=== PATIENT | female | born 1985 | race Caucasian/White ===

== ENCOUNTER → 2022-11-25 08:57 | Outpatient (CLI) | payer MEDICAID, SELFPAY ==
[2022-11-25 09:36] LABS: Basophils % 0.5 % (0.1-2.0); Eosinophils # 0.2 K/mm3 (0.0-0.4); Eosinophils % 2.8 % (0.1-12.0); Hematocrit 40.4 % (37.0-47.0); Hemoglobin 12.9 g/dL (12.2-16.2); Lymphocytes # 2.5 K/mm3 (0.7-4.5); Mean Corpuscular Hemoglobin 31.6 pg (27.0-31.2); Mean Corpuscular Volume 98.9 fl (81-99); Mean Platelet Volume 7.8 fl (7.4-10.4); Monocytes # 0.6 K/mm3 (0.1-1.0); Monocytes % 6.9 % (1.7-9.3); Neutrophils % 59.8 % (37.0-80.0); Platelet Count 386 K/mm3 (142-424); Red Blood Count 4.08 M/mm3 (4.20-5.40); Red Cell Distribution Width 13.5 % (11.5-17.5); White Blood Count 8.4 K/mm3 (4.8-10.8)
[2022-11-25 09:49] LABS: Alanine Aminotransferase 17 U/L (12-78); Albumin Level 4.2 g/dl (3.5-5.0); Anion Gap 10.2 mEq/L (5-15); Aspartate Amino Transferase 27 U/L (14-36); Bilirubin,Total 0.3 mg/dl (0.2-1.3); Blood Urea Nitrogen 10 mg/dl (7-17); Calcium 9.3 mg/dl (8.4-10.2); Carbon Dioxide 28 mmol/L (22.0-30.0); Chloride 105 mmol/L (98-107); Estimated Glomerular Filt Rate 95 ml/min (>60); GFR (African American) 115 ML/MIN (>60); Glucose 91 mg/dl (74-100); Potassium 4.2 mmoL/L (3.5-5.1); Sodium 139 mmol/L (136-145); Total Protein,Serum 7.1 g/dl (6.3-8.2)
[2022-11-25 09:50] LABS: Albumin/Globulin Ratio 1.4 (1.1-1.8); Alkaline Phosphatase 66 U/L (38-126); Globulin 2.9 g/dL (1.3-3.2)
[2022-11-25 10:08] LABS: HCG,Quantitative < 2 mIU/ml (0-5.42)
== END ==
PROVIDERS: PCP Family Medicine; Visit Provider Obstetrics & Gynecology
DX: N90.89 Other specified noninflammatory disorders of vulva and perineum (principal)
CPT/HCPCS: 36415; 80053; 84702; 85025

== ENCOUNTER 2022-11-28 06:10 | Day surgery (SDC) | payer MEDICAID, SELFPAY ==
[2022-11-25 09:23] VITALS: BMI 23.0
--- NOTE | 2022-11-28 07:13 | SUR.PREOP ---
pt stated her place busted open last night and is no longer there. I contacted Dr Merrill she instructed if the pt wanted to see her she would come on in and talk with her. Otherwise, she can go on home and to contact the office if concerns arise. Pt stated she was fine to go on home and would notify if any problems
== END 2022-11-28 06:20 | disposition home or self-care (01) ==
PROVIDERS: PCP Nurse Practitioner Family; Visit Provider Obstetrics & Gynecology
PROC: (CPT 11420; principal; 2022-11-28 07:30)
DX: Z53.29 Procedure and treatment not carried out because of patient's decision for other reasons (principal); N90.89 Other specified noninflammatory disorders of vulva and perineum
CPT/HCPCS: 11420

== ENCOUNTER → 2023-01-19 14:14 | Outpatient (CLI) | payer MEDICAID, SELFPAY ==
[2023-01-19 14:45] LABS: Basophils # 0.1 K/mm3 (0-0.2); Basophils % 0.6 % (0.1-2.0); Eosinophils # 0.4 K/mm3 (0.0-0.4); Eosinophils % 3.5 % (0.1-12.0); Hematocrit 38.7 % (37.0-47.0); Hemoglobin 13.3 g/dL (12.2-16.2); Lymphocytes # 3.4 K/mm3 (0.7-4.5); Lymphocytes % 32.2 % (10-50); Mean Corpuscular HGB Conc 34.3 g/dL (31.8-35.4); Mean Corpuscular Hemoglobin 33.6 pg (27.0-31.2); Mean Corpuscular Volume 98.1 fl (81-99); Mean Platelet Volume 8.5 fl (7.4-10.4); Monocytes # 0.6 K/mm3 (0.1-1.0); Monocytes % 5.5 % (1.7-9.3); Neutrophils # 6.2 K/mm3 (1.8-7.8); Neutrophils % 58.2 % (37.0-80.0); Platelet Count 363 K/mm3 (142-424); Red Blood Count 3.95 M/mm3 (4.20-5.40); Red Cell Distribution Width 13.2 % (11.5-17.5); White Blood Count 10.6 K/mm3 (4.8-10.8)
[2023-01-19 16:37] LABS: Alanine Aminotransferase 19 U/L (12-78); Albumin Level 4.1 g/dl (3.5-5.0); Albumin/Globulin Ratio 1.5 (1.1-1.8); Alkaline Phosphatase 69 U/L (38-126); Anion Gap 15.6 mEq/L (5-15); Aspartate Amino Transferase 33 U/L (14-36); Bilirubin,Total 0.3 mg/dl (0.2-1.3); Blood Urea Nitrogen 7 mg/dl (7-17); Calcium 9.1 mg/dl (8.4-10.2); Carbon Dioxide 23 mmol/L (22.0-30.0); Chloride 104 mmol/L (98-107); Estimated Glomerular Filt Rate 95 ml/min (>60); GFR (African American) 115 ML/MIN (>60); Globulin 2.7 g/dL (1.3-3.2); Glucose 71 mg/dl (74-100); Potassium 4.6 mmoL/L (3.5-5.1); Sodium 138 mmol/L (136-145); Total Protein,Serum 6.8 g/dl (6.3-8.2)
[2023-01-19 16:54] LABS: HCG,Quantitative < 2 mIU/ml (0-5.42)
== END ==
PROVIDERS: PCP Nurse Practitioner Family; Visit Provider Obstetrics & Gynecology
DX: D06.9 Carcinoma in situ of cervix, unspecified (principal)
CPT/HCPCS: 36415; 80053; 84702; 85025

== ENCOUNTER 2023-01-24 06:01 | Day surgery (SDC) | payer MEDICAID, SELFPAY ==
[2023-01-23 13:37] VITALS: BMI 23.0
[2023-01-24 06:25] VITALS: BP 119/68; PULSE 74; RESP 18; TEMP 36.5; O2SAT 96
--- NOTE | 2023-01-24 07:07 | P.PNANES_ITS ---
[facility] Disclaimer: The information contained in this section may have been updated after the patient was seen, as this information can be updated by other users. Medical History Absence of right breast milk duct blockage Breast abscess Cataract right eye Family history of ovarian cancer HGSIL on cytologic smear of cervix High grade squamous intraepithelial lesion (HGSIL), grade 3 YON, on biopsy of cervix History of drug abuse Mass of labium Methadone use Surgical History History of breast surgery History of cataract surgery History of tonsillectomy Family History Other Alcoholism Cancer Coronary artery disease Diabetes Hyperlipidemia Hypertension Stroke Social History Smoking Status: Current every day smoker alcohol intake: never substance use type: former substance user and painkillers current occupational status: employed Travel in the last 8 weeks: None [facility] Anesthesia Checklist Patient Identification Patient Identification: Arm Band, Family and Verbal (Name & ) Structural Data Admitted From: Home Planned Operative Procedure/s: LEEP Consent for Planned Operative Procedure(s) Verified: Yes Verified Documents: Surgical Consent and History and Physical NPO Status Verified Time NPO: 00:00 Chart Verification Results Verified: CBC, BMP and HCG (NEGATIVE) Additional verifications Patient : No Anesthesia Reactions: No Hx Blood Transfusions: No Blood Transfusion Reaction: No Cephalosporin Allergy: No Cardiovascular Assessment Heart Sounds: S1 & S2 Pulse Rhythm: Irregular Peripheral Edema: No Airway Assessment Mallampati Score:: Class II C-Spine Mobility Assessed: Yes (FROM) TMJ Mobility Assessed: Yes Dentition: Good Dentition (Nothing loose per pt.) Neurological Assessment Level of Consciousness: Awake, Alert, Appropriate and Follows Commands Hx Seizures: No Numbness or tingling in extremities: No Anesthesia Plan Anesthesia Risk discussed: Yes Anesthesia Plan: Verified ASA Class: II Anesthesia Type: MAC
[2023-01-24 07:48] VITALS: BP 81/51; PULSE 77; RESP 14; TEMP 36.1; O2SAT 96
[2023-01-24 07:58] VITALS: BP 106/68; PULSE 77; RESP 14; O2SAT 96
--- NOTE | 2023-01-24 07:59 | EXP.OP.NOTE ---
Date of procedure: 01/24/23 Pre-op Diagnosis:: 1. HGSIL on cervical pap smear 2. YON 2 and 3 on cervical biopsy Post-op Diagnosis:: 1. HGSIL on cervical pap smear 2. YON 2 and 3 on cervical biopsy Procedure performed:: Loop Electrosurgical Excision Procedure Surgeon:: Sayra Merrill DO Psychotherapist Social Worker(s):: N/A DIRECTOR EMERGENCY DEPARTMENT:: Tatyana Valenzuela Anesthesia: GETA Estimated blood loss (mL): 5 Clinical Note:: Gladys is a very pleasant 37 yo female who presents to [facility] for scheduled procedure. She had HGSIL pap smear. Colposcopy was performed 11/25/22. Biopsies were taken at 7 o'clock and 9 o'clock. ECC was performed. Pathology demonstrated YON 2 at 7 o'clock and YON 3 at 9 o'clock. ECC negative. Operative findings:: 1. On bimanual exam, uterus normal size and shape, midposition. No adnexal masses palpated 2. Grossly normal appearing cervix Operative note:: Risks, benefits and alternatives were discussed with the patient. Risks include but are not limited to bleeding, infection, and VTE. Patient voiced understanding and agreed to proceed. She was wheeled back to the operating room and placed under general anesthesia without difficulty. She was placed in dorsal lithotomy position and prepped and draped in the normal sterile fashion. Straight catheter was used to drain the bladder. An insulated speculum was inserted into the vagina. Small size loop was selected to excise portion of posterior cervix. Second pass with small loop was used to excise anterior portion of ectocervix. Then, small loop was used to obtain a top hat for excision of endocervix. The bed of excised cervical tissue was cauterized with ball Bovi cautery. Uterine sound was passed through cervical canal to confirm patency. Hemostasis was noted. Surgicel snow was placed on hemostatic cauterized cervix. All instruments were removed from the vagina. Patient was awaken from anesthesia without difficulty. She was transported to recovery room in stable condition. Patient will be discharged home when awake and ambulating. She was also given instructions to follow-up in the office in 2 weeks. Condition: stable Disposition: same day Specimens:: 1. Posterior ectocervix 2. Anterior ectocervix 3. Endocervix Complications:: None
[2023-01-24 08:08] VITALS: BP 107/67; PULSE 74; RESP 16; O2SAT 97
[2023-01-24 08:18] VITALS: BP 100/62; PULSE 69; RESP 16; O2SAT 98
[2023-01-24 08:40] VITALS: BP 140/80; PULSE 69; RESP 16; TEMP 36.6; O2SAT 99
== END 2023-01-24 08:40 | disposition home or self-care (01) ==
PROVIDERS: PCP Family Medicine; Visit Provider Obstetrics & Gynecology
PROC: (CPT 57522; principal; 2023-01-24 07:30)
DX: D06.9 Carcinoma in situ of cervix, unspecified
CPT/HCPCS: 57522; J2405